=== PATIENT | female | born 1960 | race Caucasian/White ===

== ENCOUNTER 2017-11-13 08:27 | Emergency (ER) | payer OTHER ==
[~2017-11-13] VITALS: Ht 154.9 cm; Wt 68.0 kg
--- NOTE | 2017-11-13 09:25 | Emergency Room Report ---
History of Present Illness General Chief Complaint: Abdominal Pain Source: Patient Present Illness HPI 57-year-old female, history of arthritis, status post appendectomy many years ago, p/w abdominal pain 7 days. Patient states pain started GRADUALLY localized to mid abdomen, non radiating, sharp in nature, intermittent. No relieving or exacerbating factors. Also complaining of some left arm pain. Denies nvd. Denies fever, chills. Denies any chest pain or shortness of breath Allergies: Coded Allergies: No Known Allergies (Unverified , 11/13/17) Patient History Past Medical History: see triage record Past Surgical History: none Pertinent Family History: none Reviewed Nursing Documentation: PMH: Agreed, PSxH: Agreed Nursing Documentation-PMH Past Medical History: No History, Except For Hx Hypertension: Yes Review of Systems All Other Systems: negative except mentioned in HPI Physical Exam Vital Signs Date Time Temp Pulse Resp B/P (MAP) Pulse Ox O2 Delivery O2 Flow Rate FiO2 11/13/17 08:46 99.7 103 18 130/70 96 Room Air 99.7 Sp02 EP Interpretation: reviewed, normal General Appearance: mild distress Head: normocephalic, atraumatic Eyes: bilateral eye normal inspection, bilateral eye PERRL, bilateral eye EOMI ENT: normal ENT inspection, normal pharynx, normal voice, moist mucus membranes Neck: normal inspection, full range of motion, supple Respiratory: normal inspection, lungs clear, normal breath sounds, no respiratory distress, no retraction, no wheezing, speaking full sentences, chest symmetrical Cardiovascular #1: normal inspection, regular rate, rhythm, no edema, normal capillary refill Cardiovascular #2: 2+ radial (R), 2+ radial (L) Gastrointestinal: other - mid abdominal tendernss no guarding or rebound Musculoskeletal: normal inspection, back normal, normal range of motion, non- tender Neurologic: normal inspection, alert, oriented x3, responsive, motor strength/ tone normal, sensory intact, normal gait, speech normal Psychiatric: normal inspection, judgement/insight normal, memory normal Skin: normal inspection, normal color, no rash, warm/dry, well hydrated, normal turgor Medical Decision Making Diagnostic Impression: Primary Impression: Abdominal pain Additional Impressions: Left renal mass Enteritis ER Course 57-year-old female presenting with abdominal pain Differential Diagnosis: Gastritis, gastroenteritis, cholecystitis, diverticulitis, SBO, cardiac, UTI/ pyelo Plan: Basic labs, ua, ekg CT abdopelvis ER course: Patient required pain meds as pain returned CT with L renal mass, probable crohns as pt with enteritis in distal ileum pt continues to have abd pain, her abdomen is soft. will admit Disposition: Transferred to outside hospital secondary to insurance purposes Discussed with [employer] who has accepted pt for xfer to [facility] Please note that this Emergency Department Report was dictated using [employer] engineering technician technology software, occasionally this can lead to erroneous entry secondary to interpretation by the dictation equipment EKG Diagnostic Results EP Interpretation: Yes Rate: normal Rhythm: NSR ST Segments: T-wave inversion 1 and aVL ASA given to patient: No Rhythm Strip EP Interpretation: Yes Rate: 104 Rhythm: NSR, no PVCs, no ectopy Chest X-ray CXR: Ordered: Yes 1 view Indication: Chest pain EP interpretation: Yes Interpretation: No consolidation, no effusion, no PTX, no acute cardiopulmonary disease Impression: No acute disease Electronically signed by Genia Srivastava MD Laboratory Tests Test 11/13/17 09:03 11/13/17 09:05 Urine Color Yellow Urine Appearance Clear Urine pH 6 (4.5-8.0) Urine Specific [place] 1.020 (1.005-1.035) Urine Protein 4+ (NEGATIVE) H Urine Glucose (UA) Negative (NEGATIVE) Urine Ketones Negative (NEGATIVE) Urine Occult Blood 2+ (NEGATIVE) H Urine Nitrite Negative (NEGATIVE) Urine Bilirubin Negative (NEGATIVE) Urine Urobilinogen 1 MG/DL (0.0-1.0) H Urine Leukocyte Esterase 1+ (NEGATIVE) H Urine RBC 2-4 /HPF (0 - 2) H Urine WBC 0-2 /HPF (0 - 2) Urine Squamous Epithelial Cells Few /LPF (NONE/OCC) Urine Bacteria Occasional /HPF (NONE) Urine Mucus Few /LPF (NONE/OCC) H White Blood Count 10.5 K/UL (4.8-10.8) Red Blood Count 4.87 M/UL (4.20-5.40) Hemoglobin 15.2 G/DL (12.0-16.0) Hematocrit 43.7 % (37.0-47.0) Mean Corpuscular Volume 90 FL (80-99) Mean Corpuscular Hemoglobin 31.1 PG (27.0-31.0) H Mean Corpuscular Hemoglobin Concent 34.7 G/DL (32.0-36.0) Red Cell Distribution Width 11.6 % (11.6-14.8) Platelet Count 203 K/UL (150-450) Mean Platelet Volume 8.8 FL (6.5-10.1) Neutrophils (%) (Auto) 79.5 % (45.0-75.0) H Lymphocytes (%) (Auto) 9.1 % (20.0-45.0) L Monocytes (%) (Auto) 10.6 % (1.0-10.0) H Eosinophils (%) (Auto) 0.0 % (0.0-3.0) Basophils (%) (Auto) 0.7 % (0.0-2.0) Sodium Level 137 MMOL/L (136-145) Potassium Level 3.8 MMOL/L (3.5-5.1) Chloride Level 104 MMOL/L (98-107) Carbon Dioxide Level 27 MMOL/L (21-32) Anion Gap 6 mmol/L (5-15) Blood Urea Nitrogen 12 mg/dL (7-18) Creatinine 0.8 MG/DL (0.55-1.30) Estimate Glomerular Filtration Rate > 60 mL/min (>60) Glucose Level 131 MG/DL (74-106) H Lactic Acid Level 0.80 mmol/L (0.66-2.22) Calcium Level 8.1 MG/DL (8.5-10.1) L Total Bilirubin 0.5 MG/DL (0.2-1.0) Aspartate Amino Transferase (AST) 31 U/L (15-37) Alanine Aminotransferase (ALT) 21 U/L (12-78) Alkaline Phosphatase 73 U/L (46-116) Troponin I 0.034 ng/mL (0.000-0.056) Total Protein 6.8 G/DL (6.4-8.2) Albumin 2.8 G/DL (3.4-5.0) L Globulin 4.0 g/dL Albumin/Globulin Ratio 0.7 (1.0-2.7) L Lipase 176 U/L (73-393) CT/MRI/US Diagnostic Results CT/MRI/US Diagnostic Results : Imaging Test Ordered: CT abdo pelvis Impression Findings: In the left kidney, there is a 3.7 cm mass which demonstrates peripheral slightly decreased enhancement compared to normal kidney, central irregular shaped 2.7 cm diameter area of low attenuation. This abuts the renal sinus. The renal vein is unremarkable. The right kidney is unremarkable. The appendix is not visualized, reportedly surgically absent. There is wall thickening of the terminal ileum and distal ileum, and stranding of the adjacent fat. There is also slight wall thickening of the cecum. There is questionably a small amount of free fluid in the pelvic cul-de-sac. The ascending and proximal transverse colon are stool filled, otherwise unremarkable. No evidence of diverticulosis or diverticulitis. No small bowel distention. No free intraperitoneal gas. The distal esophagus, stomach, duodenum are unremarkable. The liver is diffusely hypoattenuating, consistent with diffuse fatty change. No focal abnormality. The gallbladder, bile ducts, pancreas, spleen, adrenals are unremarkable. Prominent nodes are seen in the right lower quadrant. Some calcified nodes are also seen in the mesenteric root to the right of midline. The lung bases demonstrate a small fat-containing Bochdalek hernia on the right , are otherwise unremarkable. The bones demonstrate mild degenerative spondylosis changes, are otherwise unremarkable. Impression: 3.7 cm left renal mass. Central low attenuation may represent central necrosis or less likely a central scar. This is suspicious for renal neoplasm. Renal oncocytoma is less likely but also in the differential Wall thickening of the distal and terminal ileum and stranding of the adjacent fat as well as regional lymphadenopathy. Findings are concerning for enteritis, distribution of which is suspicious for Crohn's disease. Equivocal trace free pelvic fluid, if real likely related to the above Calcified mesenteric root lymph nodes, may indicate old granulomatous disease Fatty liver Incidental findings of degenerative spondylosis, tiny fat-containing right diaphragmatic Bochdalek hernia Findings discussed by phone with Dr. Srivastava emergency room at the time of interpretation Last Vital Signs Date Time Temp Pulse Resp B/P (MAP) Pulse Ox O2 Delivery O2 Flow Rate FiO2 11/13/17 08:46 99.7 103 18 130/70 96 Room Air 99.7 [facility] Condition: Serious Genia Srivastava M.D. Nov 13, 2017 09:25
[2017-11-13 09:39] LABS: APPEARANCE,URINE CLEAR; BILIRUBIN, URINE NEGATIVE (NEGATIVE); GLUCOSE, URINE (UA) NEGATIVE (NEGATIVE); KETONES,URINE NEGATIVE (NEGATIVE); LEUKOCYTE ESTERASE ,URINE 1+ (NEGATIVE); NITRITE,URINE NEGATIVE (NEGATIVE); PH,URINE 6 (4.5-8.0); PROTEIN,URINE 4+ (NEGATIVE); UROBILINOGEN,URINE 1 MG/DL (0.0-1.0)
[2017-11-13 09:46] VITALS: BP 129/82
[2017-11-13 09:52] LABS: BASOPHILS % (AUTO) 0.7 % (0.0-2.0); HEMATOCRIT 43.7 % (37.0-47.0); HEMOGLOBIN 15.2 G/DL (12.0-16.0); LYMPHOCYTES % (AUTO) 9.1 % (20.0-45.0); MEAN CORPUSCULAR VOLUME 90 FL (80-99); MONOCYTES % (AUTO) 10.6 % (1.0-10.0); NEUTROPHILS % (AUTO) 79.5 % (45.0-75.0); PLATELET COUNT 203 K/UL (150-450); RED BLOOD COUNT 4.87 M/UL (4.20-5.40); RED CELL DISTRIBUTION WIDTH 11.6 % (11.6-14.8); WHITE BLOOD COUNT 10.5 K/UL (4.8-10.8)
[2017-11-13 09:56] LABS: COLOR,URINE YELLOW
[2017-11-13 10:38] LABS: ANION GAP 6 mmol/L (5-15); BLOOD UREA NITROGEN 12 mg/dL (7-18); CALCIUM 8.1 MG/DL (8.5-10.1); CARBON DIOXIDE 27 MMOL/L (21-32); CHLORIDE 104 MMOL/L (98-107); CREATININE 0.8 MG/DL (0.55-1.30); POTASSIUM 3.8 MMOL/L (3.5-5.1); SODIUM 137 MMOL/L (136-145)
[2017-11-13 10:54] LABS: ALANINE AMINOTRANSFERASE 21 U/L (12-78); ALBUMIN 2.8 G/DL (3.4-5.0); ALBUMIN/GLOBULIN RATIO 0.7 (1.0-2.7); ALKALINE PHOSPHATASE 73 U/L (46-116); ASPARTATE AMINO TRANSFERASE 31 U/L (15-37); BILIRUBIN,TOTAL 0.5 MG/DL (0.2-1.0)
[2017-11-13] MEDS ORDERED: Morphine Sulfate 4mg/ml Inj IVP ONE (11:30)
[2017-11-13 12:05] VITALS: BP 124/82
--- NOTE | 2017-11-13 12:40 | Diagnostic Imaging Report ---
Indication: Cough Technique: One view of the chest Comparison: none Findings: There is mild diffuse interstitial prominence. Heart size is upper limits normal. The aorta is tortuous ectatic and slightly calcified. No focal airspace consolidation. No effusions Impression: Equivocal mild interstitial congestion. Correlate with clinical findings No acute process otherwise
--- NOTE | 2017-11-13 12:56 | Diagnostic Imaging Report ---
Clinical Indication: Abdominal pain for 7 days localize in midabdomen, nonradiating, sharp in nature, intermittent Technique: No oral contrast utilized, per emergency room physician request IV administration nonionic contrast. Venous phase spiral acquisition obtained through the abdomen and pelvis. Multiplanar reconstructions were generated. Total dose length product 810.55 mGycm. CTDIvol(s) 16.14 mGy. Dose reduction achieved using automated exposure control Comparison: none Findings: In the left kidney, there is a 3.7 cm mass which demonstrates peripheral slightly decreased enhancement compared to normal kidney, central irregular shaped 2.7 cm diameter area of low attenuation. This abuts the renal sinus. The renal vein is unremarkable. The right kidney is unremarkable. The appendix is not visualized, reportedly surgically absent. There is wall thickening of the terminal ileum and distal ileum, and stranding of the adjacent fat. There is also slight wall thickening of the cecum. There is questionably a small amount of free fluid in the pelvic cul-de-sac. The ascending and proximal transverse colon are stool filled, otherwise unremarkable. No evidence of diverticulosis or diverticulitis. No small bowel distention. No free intraperitoneal gas. The distal esophagus, stomach, duodenum are unremarkable. The liver is diffusely hypoattenuating, consistent with diffuse fatty change. No focal abnormality. The gallbladder, bile ducts, pancreas, spleen, adrenals are unremarkable. Prominent nodes are seen in the right lower quadrant. Some calcified nodes are also seen in the mesenteric root to the right of midline. The lung bases demonstrate a small fat-containing Bochdalek hernia on the right, are otherwise unremarkable. The bones demonstrate mild degenerative spondylosis changes, are otherwise unremarkable. Impression: 3.7 cm left renal mass. Central low attenuation may represent central necrosis or less likely a central scar. This is suspicious for renal neoplasm. Renal oncocytoma is less likely but also in the differential Wall thickening of the distal and terminal ileum and stranding of the adjacent fat as well as regional lymphadenopathy. Findings are concerning for enteritis, distribution of which is suspicious for Crohn's disease. Equivocal trace free pelvic fluid, if real likely related to the above Calcified mesenteric root lymph nodes, may indicate old granulomatous disease Fatty liver Incidental findings of degenerative spondylosis, tiny fat-containing right diaphragmatic Bochdalek hernia Findings discussed by phone with Dr. Srivastava emergency room at the time of interpretation The CT scanner at [facility] is accredited by the [employer] and the scans are performed using protocols designed to limit radiation exposure to as low as reasonably achievable to attain images of sufficient resolution adequate for diagnostic evaluation.
[2017-11-13] MEDS ORDERED: NKM (12:57)
[2017-11-13 14:35] VITALS: BP 121/76
[2017-11-13 17:10] VITALS: BP 122/75
[2017-11-13] MEDS ORDERED: Morphine Sulfate 2mg/ml Inj IVP ONE (17:30)
[2017-11-13] MEDS ORDERED: Morphine Sulfate 2mg/ml Inj IVP PRN (18:30)
[2017-11-13] MEDS ORDERED: D5 1/2NS 1,000 ML IV SCH (18:30)
[2017-11-13] MEDS ORDERED: Acetaminophen 650 MG SUPP RECTAL PRN ×2 (18:30)
[2017-11-13] MEDS ORDERED: Morphine Sulfate 4mg/ml Inj IVP PRN (18:30)
[2017-11-13 19:02] VITALS: BP 118/58
[2017-11-13] MEDS ORDERED: Milk of Magnesia 30ml Ud ORAL PRN (21:00)
[2017-11-13] MEDS ORDERED: Docusate 100mg cap ORAL SCH (21:00)
[2017-11-14] MEDS ORDERED: Pantoprazole Inj IV SCH (09:00)
== END 2017-11-13 19:02 | disposition short-term general hospital (02) ==
LOC: EMR 09:20 → CANBEDREQ 19:03
DX: R10.9 Unspecified abdominal pain (principal); N28.89 Other specified disorders of kidney and ureter; K52.9 Noninfective gastroenteritis and colitis, unspecified; I10 Essential (primary) hypertension
CPT/HCPCS: 36415; 71045; 74177; 80053; 81003; 83605; 83690; 84484; 85025; 93005; 96361; 96374; 96375; 99285; J2270; Q9967